=== PATIENT | male | born 1975 | race African-American/Black ===

== ENCOUNTER 2016-08-21 08:41 | Emergency (ER) | payer BC, OTHER ==
[2016-08-21 08:47] VITALS: BP 122/74; PULSE 110; TEMP 98.4; BMI 20.7
--- NOTE | 2016-08-21 10:14 | PDOC ---
History of Present Illness - General Chief Complaint: Rash Stated Complaint: RASH ON LT HAND, THIGH Time Seen by Provider: 08/21/16 09:30 History Source: Patient Exam Limitations: No Limitations - History of Present Illness Initial Comments: 08/21/16 19:17 My Chief Complaint: Rash on left hand and bilateral buttocks History of present illness: Patient is a 40-year-old male with a history of asthma here today complaining of a persistent rash to his left dorsal hand and bilateral medial buttocks for the last few weeks that has been unresponsive to putting on antifungal cream. Pt. is asking for refill of asthma pump, not using often every few days, and allergy medication. Timing/Duration: getting worse Severity: moderate Associated Symptoms: reports: rash Past History - Past Medical History Allergies/Adverse Reactions: Allergies Allergy/AdvReac Type Severity Reaction Status Date / Time No Known Allergies Allergy Verified 08/21/16 08:43 Home Medications: Ambulatory Orders Albuterol Sulfate [Proventil HFA Inhaler -] 2 inh PO Q4H PRN #1 inhaler MDD 6 Fexofenadine/Pseudoephedrine [Susi-D 24 Hour Tablet] 1 each PO DAILY #21 tab.er.24h 08/21/16 Mometasone Furoate [Elocon] 45 gm TP BID #1 oint...g. MDD 2 08/21/16 Asthma: Yes - Psycho/Social/Smoking Cessation Hx Anxiety: No Suicidal Ideation: No Smoking History: Current every day smoker Have you smoked in the past 12 months: Yes Number of Cigarettes Smoked Daily: 3 Information on smoking cessation initiated: Yes 'Breaking Loose' booklet given: 08/21/16 Hx Alcohol Use: No Drug/Substance Use Hx: No Substance Use Type: None Review of Systems - Review of Systems Able to Perform ROS?: Yes Constitutional: No: Symptoms Reported HEENTM: No: Symptoms Reported Respiratory: No: Symptoms reported Cardiac (ROS): No: Symptoms Reported ABD/GI: No: Symptoms Reported Integumentary: Yes: Rash (slightly scaly left dorsal, b/l medial buttock rash ) Neurological: No: Symptoms reported *Physical Exam - Vital Signs Last Vital Signs Temp Pulse Resp BP Pulse Ox 98.4 F 110 H 18 122/74 100 08/21/16 08:45 08/21/16 08:45 08/21/16 08:45 08/21/16 08:45 08/21/16 08:45 - Physical Exam Comments: 08/21/16 19:22 General Appearance: Yes: Appropriately Dressed HEENT: positive: Normal ENT Inspection Neck: negative: Lymphadenopathy (R), Lymphadenopathy (L) Respiratory/Chest: positive: Lungs Clear, Normal Breath Sounds. negative: Chest Tender, Respiratory Distress Cardiovascular: positive: Regular Rhythm, Regular Rate, S1, S2 Integumentary: positive: Rash (left dorsal hand, b/l medial buttock, slightly scaly with irregular border ) Medical Decision Making - Medical Decision Making 08/21/16 19:24 Patient is a 40-year-old male with a history of asthma here today complaining of a persistent rash to his left dorsal hand and bilateral medial buttocks for the last few weeks that has been unresponsive to putting on antifungal cream. Pt. is asking for refill of asthma pump, not using often every few days, and allergy medication. Dermatitis left dorsal hand, b/l medial buttock PLAN: elocon oint apply bid susi 24 hrs one tab daily proventil hfa 2 puffs every 4 hrs prn wheezing/sob 08/21/16 19:24 *DC/Admit/Observation/Transfer Diagnosis at time of Disposition: Dermatitis of nipple - Discharge Dispostion Disposition: HOME Condition at time of disposition: Stable - Prescriptions Prescriptions: Fexofenadine/Pseudoephedrine [Susi-D 24 Hour Tablet] 1 each PO DAILY #21 tab.er.24h Mometasone Furoate [Elocon] 45 gm TP BID #1 oint...g. MDD 2 Albuterol Sulfate [Proventil HFA Inhaler -] 2 inh PO Q4H PRN #1 inhaler MDD 6 PRN Reason: Short Of Breath/Wheezing - Patient Instructions Additional Instructions: Follow up with [facility] Dr. Machuca [phone] as soon as possible Wash her hands after touching area involved Patient voiced understanding of discharge instructions and all questions were answered
== END 2016-08-21 10:22 | disposition home or self-care (01) ==
LOC: JERFT 08:41
DX: L30.8 Other specified dermatitis (principal); J45.909 Unspecified asthma, uncomplicated; F17.210 Nicotine dependence, cigarettes, uncomplicated
CPT/HCPCS: 99281-25